=== PATIENT | female | born 1985 | race American Indian/Alaskan Native ===

== ENCOUNTER 2018-05-28 16:16 | Emergency (ER) | payer SELFPAY ==
[2018-05-28] MEDS ORDERED: ZOFRAN ODT PO ONE (20:53)
[2018-05-28] MEDS ORDERED: MOTRIN PO ONE (20:53)
--- NOTE | 2018-05-28 20:55 | Emergency Department Report ---
ED ENT HPI - General Chief complaint: Dental/Oral Stated complaint: FEVER,MIGRANE Time Seen by Provider: 05/28/18 20:44 Source: patient Mode of arrival: Ambulatory Limitations: No Limitations - History of Present Illness Initial comments: 32-year-old -[place] female comes in complaining of a possible abscessed tooth to the left lower jaw associated with intermittent headaches and nausea also complains of sore throat 2 days. Patient ports that she had a fever yesterday of 102. She has no fever today. She reports that she vomited 2 times and she admits to nausea. She reports that the tooth pain isn't gone on for 1 week sore throat 2 days she's been taken Tylenol last dose prior to arrival. Patient reports a past medical history of asthma. MD complaint: tooth pain, sore throat -: days(s) (2 sore throat), week(s) (tooth pain) Location: throat, tooth # (18) Severity: moderate Quality: burning, aching Consistency: intermittent Improves with: none Worsens with: none Associated Symptoms: fever, gum swelling, toothache, sore throat - Related Data Previous Rx's Medication Instructions Recorded Last Taken Type Amoxicillin [Amoxicillin TAB] 875 mg PO BID #20 tablet 05/28/18 Unknown Rx Chlorhexidine Mouthwash [Peridex] 2.5 ml MM BID #473 ml 05/28/18 Unknown Rx Ibuprofen [Motrin 600 MG tab] 600 mg PO Q8H #30 tablet 05/28/18 Unknown Rx Allergies Allergy/AdvReac Type Severity Reaction Status Date / Time No Known Allergies Allergy Unverified 05/28/18 16:49 ED Dental HPI - General Chief complaint: Dental/Oral Stated complaint: FEVER,MIGRANE Time Seen by Provider: 05/28/18 20:44 Source: patient Mode of arrival: Ambulatory Limitations: No Limitations - Related Data Previous Rx's Medication Instructions Recorded Last Taken Type Amoxicillin [Amoxicillin TAB] 875 mg PO BID #20 tablet 05/28/18 Unknown Rx Chlorhexidine Mouthwash [Peridex] 2.5 ml MM BID #473 ml 05/28/18 Unknown Rx Ibuprofen [Motrin 600 MG tab] 600 mg PO Q8H #30 tablet 05/28/18 Unknown Rx Allergies Allergy/AdvReac Type Severity Reaction Status Date / Time No Known Allergies Allergy Unverified 05/28/18 16:49 ED Review of Systems ROS: Stated complaint: FEVER,MIGRANE Other details as noted in HPI Comment: All other systems reviewed and negative Constitutional: fever ENT: throat pain, dental pain Gastrointestinal: nausea, vomiting ED Past Medical Hx - Past Medical History Previous Medical History?: Yes Hx Asthma: Yes - Surgical History Past Surgical History?: Yes Additional Surgical History: oral-cyst removal - Social History Smoking Status: Current Every Day Smoker Substance Use Type: None - Medications Home Medications: Home Medications Medication Instructions Recorded Confirmed Last Taken Type Amoxicillin [Amoxicillin TAB] 875 mg PO BID #20 tablet 05/28/18 Unknown Rx Chlorhexidine Mouthwash [Peridex] 2.5 ml MM BID #473 ml 05/28/18 Unknown Rx Ibuprofen [Motrin 600 MG tab] 600 mg PO Q8H #30 tablet 05/28/18 Unknown Rx ED Physical Exam - General Limitations: No Limitations General appearance: alert, in no apparent distress - Head Head exam: Present: atraumatic, normocephalic - Eye Eye exam: Present: EOMI - Expanded ENT Exam Expanded Teeth exam: Present: dental caries, dental tenderness # (18), gingival enlargement, other (poor dental care) Throat exam: Positive: tonsillar erythema, tonsillomegaly - Neck Neck exam: Present: normal inspection, full ROM. Absent: lymphadenopathy - Respiratory Respiratory exam: Present: normal lung sounds bilaterally. Absent: respiratory distress - Cardiovascular Cardiovascular Exam: Present: regular rate, normal rhythm. Absent: systolic murmur, diastolic murmur, rubs, gallop - Neurological Exam Neurological exam: Present: alert, oriented X3 - Psychiatric Psychiatric exam: Present: flat affect - Skin Skin exam: Present: warm, dry, intact, normal color. Absent: rash ED Course Vital Signs 05/28/18 16:47 Temperature 99.3 F Pulse Rate 91 H Respiratory 18 Rate Blood Pressure 121/93 O2 Sat by Pulse 100 Oximetry ED Medical Decision Making - Medical Decision Making Patient has been evaluated by this provider fast track. Zofran ordered 8 mg sublingual. Ibuprofen ordered for pain management. Patient refused to have throat culture obtained reports that she scared. We'll discharge patient home on amoxicillin and ibuprofen. Referral to [facility] for dental care. Critical care attestation.: If time is entered above; I have spent that time in minutes in the direct care of this critically ill patient, excluding procedure time. ED Disposition Clinical Impression: Dental abscess, Acute sore throat, Gingivitis, acute Disposition: [id number] TO HOME OR SELFCARE Is pt being admited?: No Does the pt Need Aspirin: No Condition: Stable Instructions: Trench Mouth (ED), Gingivitis (ED), Dental Abscess (ED), Pharyngitis (ED) Additional Instructions: Complete antibiotics as prescribed pain medication as needed and use mouth rinse as prescribed and pressure Teeth twice a day as well as floss twice a day. Follow-up with a dentist I have listed several below. Prescriptions: Amoxicillin [Amoxicillin TAB] 875 mg PO BID #20 tablet Chlorhexidine Mouthwash [Peridex] 2.5 ml MM BID #473 ml Ibuprofen [Motrin 600 MG tab] 600 mg PO Q8H #30 tablet Referrals: PRIMARY CARE, [Primary Care Provider] - 3-5 Days [facility] [Provider Group] - 3-5 Days [facility] [Outside] - 3-5 Days [facility] [Outside] - 3-5 Days [facility] [Outside] - 3-5 Days Forms: Work/School Release Form(ED)
[2018-05-28 21:25] VITALS: BP 124/90
== END 2018-05-28 21:25 | disposition home or self-care (01) ==
LOC: ED 16:16
DX: K04.7 Periapical abscess without sinus (principal); J02.9 Acute pharyngitis, unspecified; K05.00 Acute gingivitis, plaque induced
CPT/HCPCS: 99282; Q0162

== ENCOUNTER 2018-12-09 15:59 | Emergency (ER) | payer OTHER ==
[2018-12-09] MEDS ORDERED: BENADRYL PO ONE (19:31)
[2018-12-09] MEDS ORDERED: REGLAN PO ONE (19:31)
[2018-12-09] MEDS ORDERED: TORADOL IM ONE (19:31)
--- NOTE | 2018-12-09 19:31 | Emergency Department Report ---
Chief Complaint: Headache Stated Complaint: MIGRANE 3WKS/PAIN Time Seen by Provider: 12/09/18 19:28 - HPI History of Present Illness: pt presents to ED with a frontal GHOTRA for three weeks worse with bright lights, noise some nausea no vomiting daily GHOTRA no vision changes no numbness, weakness has taken tylenol, ibuprofen does not have a hx of migraines does not usually have headaches MSE screening note: Focused history and physical exam performed. ED Disposition for MSE Condition: Stable
--- NOTE | 2018-12-09 21:15 | Emergency Department Report ---
ED Headache HPI - General Chief Complaint: Headache Stated Complaint: MIGRANE 3WKS/PAIN Time Seen by Provider: 12/09/18 19:28 - History of Present Illness Initial Comments: This is a 33-year-old -[place] female presents with the migraine headache for 3 weeks. Patient reports headache lasts for several hours and a throbbing sensation to frontal. Patient states headache is every 2-3 days for the past 3 weeks. She reports a history of headache. She is a current smoker with a past medical history of asthma. Patient reports sensitivity to light and noise. States at work today a fire alarm went off and her head has been hurting every since. Reports 2 episodes of nausea and vomiting. She is currently taking Tylenol and NSAIDs with no improvement of symptoms. Timing/Duration: 4-6 hours, constant, waxing and waning, other (3 weeks) Quality: constant, throbbing Head Injury Location: frontal Recent Head Trauma: occasional headaches Modifying Factors: improves with: exposure to light, medication Associated Symptoms: denies symptoms Allergies/Adverse Reactions: Allergies No Known Allergies Allergy (Unverified 05/28/18 16:49) Home Medications: Ambulatory Orders Amoxicillin [Amoxicillin TAB] 875 mg PO BID #20 tablet 05/28/18 Chlorhexidine Mouthwash [Peridex] 2.5 ml MM BID #473 ml 05/28/18 Ibuprofen [Motrin 600 MG tab] 600 mg PO Q8H #30 tablet 05/28/18 Ibuprofen [Motrin 800 MG tab] 800 mg PO Q8HR PRN #15 tablet 12/09/18 Metoclopramide HCl [Metoclopramide HCl Odt] 5 mg PO TID PRN #10 tab.rapdis 12/09/18 ED Review of Systems ROS: Stated complaint: MIGRANE 3WKS/PAIN Other details as noted in HPI Constitutional: denies: chills, fever ENT: denies: ear pain, throat pain Respiratory: denies: cough, shortness of breath, wheezing Cardiovascular: denies: chest pain, palpitations Gastrointestinal: denies: abdominal pain, nausea, diarrhea Skin: denies: rash, lesions Neurological: headache. denies: weakness, paresthesias Psychiatric: denies: anxiety, depression ED Past Medical Hx - Past Medical History Previous Medical History?: Yes Hx Asthma: Yes - Surgical History Past Surgical History?: Yes Additional Surgical History: oral-cyst removal - Social History Smoking Status: Current Every Day Smoker Substance Use Type: None - Medications Home Medications: Home Medications Medication Instructions Recorded Confirmed Last Taken Type Amoxicillin [Amoxicillin TAB] 875 mg PO BID #20 tablet 05/28/18 Unknown Rx Chlorhexidine Mouthwash [Peridex] 2.5 ml MM BID #473 ml 05/28/18 Unknown Rx Ibuprofen [Motrin 600 MG tab] 600 mg PO Q8H #30 tablet 05/28/18 Unknown Rx Ibuprofen [Motrin 800 MG tab] 800 mg PO Q8HR PRN #15 tablet 12/09/18 Unknown Rx Metoclopramide HCl [Metoclopramide 5 mg PO TID PRN #10 tab.rapdis 12/09/18 Unknown Rx HCl Odt] ED Physical Exam - General Limitations: No Limitations General appearance: alert, in no apparent distress, obese (morbidly obese) - Head Head exam: Present: atraumatic, normocephalic - Neck Neck exam: Present: normal inspection - Respiratory Respiratory exam: Present: normal lung sounds bilaterally. Absent: respiratory distress - Cardiovascular Cardiovascular Exam: Present: regular rate, normal rhythm. Absent: systolic murmur, diastolic murmur, rubs, gallop - GI/Abdominal GI/Abdominal exam: Present: soft, normal bowel sounds - Neurological Exam Neurological exam: Present: alert, oriented X3 - Psychiatric Psychiatric exam: Present: normal affect, normal mood - Skin Skin exam: Present: warm, dry, intact, normal color. Absent: rash ED Course Vital Signs 12/09/18 19:30 Temperature 98.4 F Pulse Rate 90 Respiratory 14 Rate Blood Pressure 140/88 O2 Sat by Pulse 100 Oximetry ED Medical Decision Making - Medical Decision Making This is a 33 y.o. female that presents with headache for 3 weeks. History of migraines. Patient is stable and was examined by me. Vital signs stable patient in no acute distress. Given toradol, Benadryl, and Reglan while in ER. Migraine Headache. Start ibuprofen 800 mg po 3 times a day when necessary and metoclopramide 5 mg by mouth 3 times a day when necessary for nausea. No further questions noted by the patient. Discharged home in stable condition. Follow up with PCP in 24-72 hours. Critical care attestation.: If time is entered above; I have spent that time in minutes in the direct care of this critically ill patient, excluding procedure time. ED Disposition Clinical Impression: Nausea and vomiting in adult Migraine Qualifiers: Migraine type: without aura Status migrainosus presence: with status migrainosus Intractability: not intractable Qualified Code(s): G43.001 - Migraine without aura, not intractable, with status migrainosus Disposition: TO HOME OR SELFCARE Is pt being admited?: No Does the pt Need Aspirin: No Condition: Stable Instructions: Migraine Headache (ED), Acute Headache (ED) Additional Instructions: Take medication at start of headache. Moderate caffeine intake. Eat at scheduled times or 3 meals a day with snacks. Follow up with primary care provider in 24-72 hours. Prescriptions: Metoclopramide HCl [Metoclopramide HCl Odt] 5 mg PO TID PRN #10 tab.rapdis PRN Reason: Nausea Ibuprofen [Motrin 800 MG tab] 800 mg PO Q8HR PRN #15 tablet PRN Reason: Pain , Severe (7-10) Referrals: [facility] [Outside] - 3-5 Days [facility] [Outside] - 3-5 Days [facility] [Outside] - 3-5 Days Forms: Work/School Release Form(ED) Time of Disposition: 21:25
[2018-12-09 21:47] VITALS: BP 122/56
== END 2018-12-09 21:47 | disposition home or self-care (01) ==
LOC: ED 15:59
DX: G43.909 Migraine, unspecified, not intractable, without status migrainosus (principal); J45.909 Unspecified asthma, uncomplicated; F17.200 Nicotine dependence, unspecified, uncomplicated
CPT/HCPCS: 96372; 99282; J1885